=== PATIENT | female | born 1980 ===

== ENCOUNTER 2017-04-27 01:50 | Emergency (ER) | payer MEDICAID ==
[2017-04-27 02:08] VITALS: O2SAT 97
[2017-04-27] MEDS ORDERED: Oxycodone/Acetaminophen 5/325 mg Tab PO STA (02:17)
[2017-04-27] MEDS ORDERED: Oxycodone/Acetaminophen 5/325 mg Tab ONE (02:23)
--- NOTE | 2017-04-27 02:46 | C.PDOC ---
History Of Present Illness Pt with c/o of pain to upper tooth x few days but worse tonight and aleve, advil , and orajel are no longer helping. Pt denies fever, facial swellling, recent dental procedure Time Seen by Provider: 04/27/17 02:08 Chief Complaint (Nursing): Dental Pain History Per: Patient Current Symptoms Are (Timing): Still Present Severity: Moderate Pain Scale Rating Of: 8 Quality: Positive for: Sharp Past Medical History Vital Signs: Last Vital Signs Temp 98.4 F 04/27/17 02:03 Pulse 76 04/27/17 02:03 Resp 16 04/27/17 02:03 BP 155/99 H 04/27/17 02:03 Pulse Ox 97 04/27/17 02:53 - Medical History PMH: No Chronic Diseases Family History: States: Unknown Family Hx - Social History Hx Alcohol Use: Yes Hx Substance Use: No - Immunization History Hx Tetanus Toxoid Vaccination: No Hx Influenza Vaccination: No Hx Pneumococcal Vaccination: No Review Of Systems Constitutional: Negative for: Fever, Chills ENT: Positive for: Other (left dental pain) Physical Exam - Physical Exam Appears: Well, In Acute Distress (painful) Skin: Normal Color, Warm Head: Atraumatic Eye(s): bilateral: Normal Inspection, PERRL, EOMI Tongue: Normal Appearing Lips: Normal Appearing Teeth: Caries (left upper molar with base of tooth embedded in gum with localized tenserness, erythema) Gingiva: Erythema (left upper ), Swelling (minimal left upper ), Tender (left upper ), No Abscess Throat: Normal, No Erythema Neck: Normal, Supple, No Other (swelling) Chest: Symmetrical Cardiovascular: Rhythm Regular, No Other Neurological/Psych: Oriented x3, Normal Speech, Normal Cognition ED Course And Treatment O2 Sat by Pulse Oximetry: 97 Pulse Ox Interpretation: Normal Progress Note: Pt was given percocet and pen VK with pain relief. Advised follow up with dentist on saturday for further evaluation Disposition Counseled Patient/Family Regarding: Diagnosis, Need For Followup, Rx Given - Disposition Referrals: dental clinic, Dentist [Other] Disposition: HOME/ ROUTINE Disposition Time: 02:50 Condition: STABLE Additional Instructions: Take all meds prescribed Follow up with dentist Return to ER if worse Prescriptions: Acetaminophen with Codeine [Tylenol with Codeine #3 Tablet] 1 - 2 each PO QID # 14 tablet Instructions: Dental Caries (ED) Forms: Work Excuse - Clinical Impression Clinical Impression: Dental caries
[2017-04-27 03:25] VITALS: BP 162/90; PULSE 70; RESP 18; TEMP 98.1
== END 2017-04-27 03:25 | disposition home or self-care (01) ==
LOC: C.ER 01:50
DX: K02.9 Dental caries, unspecified (principal)